=== PATIENT | male | born 1995 | race African-American/Black ===

== ENCOUNTER 2019-01-14 17:35 | Emergency (ER) | payer OTHER ==
[2019-01-14 18:18] LABS: BLOOD UREA NITROGEN,BUN 13 mg/dL (7.0-18.0); CARBON DIOXIDE,CO2 26.5 mmol/L (21.0-32.0); CHLORIDE,CL 105 mmol/L (98-107); GLUCOSE RANDOM 97 mg/dL (74-106); LIPASE 105 U/L (73-393); SODIUM,NA 141 mmol/L (136-148)
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
[2019-01-14] MEDS ORDERED: Iopamidol 755 MG/ML 200 ML Multipack Bottle IVPUSH ONE (18:27)
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
[2019-01-14] MEDS ORDERED: Ketorolac 60 MG/2 ML SDV IM ONE (19:02)
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
[2019-01-14] MEDS ORDERED: Ketorolac 30 MG/ML SDV IVPUSH ONE (19:11)
== END 2019-01-14 20:04 | disposition home or self-care (01) ==
LOC: MW.ED 17:35
DX: S13.4XXA Sprain of ligaments of cervical spine, initial encounter (principal); S23.3XXA Sprain of ligaments of thoracic spine, initial encounter; V49.40XA Driver injured in collision with unspecified motor vehicles in traffic accident, initial encounter
CPT/HCPCS: 36415; 70450; 71260; 72125; 72128; 72170; 80053; 81003; 83690; 85025; 96372; 96374; 99285; J1885; J2360; Q9967; 99284